=== PATIENT | female | born 1945 | race Caucasian/White ===

== ENCOUNTER 2016-06-29 17:29 | Observation (INO) | payer MEDICARE, OTHER ==
[~2016-06-29 17:29] MED LIST: ADULT ASPIRIN81 MG; ANTIVERT25 MG PO; ASPIRIN81 MG PO; ATACAND PO; ATACAND16 MG; ATACAND16 MG PO; ATACAND8 MG PO; CITRACAL + D C1 EACH PO; CITRACAL + D CA1 TAB; COREG12.5 M1 PO; COREG6.25 M1 PO; COREG6.25 MG; COREG6.25 MG PO; COUMADIN5 M1 PO; COUMADIN5 M2 PO; COUMADIN5 MG; COUMADIN7.5 M1 PO; COUMADIN7.5 MG; COUMADIN7.5 MG PO; LASIX20 M1 PO; MEGARED OMEGA-1 EAC1 PO; MULTIVITAMIN1 CAP; MULTIVITAMIN1 TAB PO; PAXIL10 MG; PAXIL10 MG PO; PREDNISONE10 M1 PO; TYLENOL PM EX-1 EACH PO; VALSARTAN40 MG PO; VIBRAMYCIN100 M1 PO; XANAX0.5 MG; XANAX0.5 MG PO; ZOFRAN4 MG PO
[2016-06-29] MEDS ORDERED: RYTHMOL SR225 M1 PO (18:35)
[2016-06-29] MEDS ORDERED: COUMADIN2.5 M1 PO (18:41)
[2016-06-29] MEDS ORDERED: PRINIVIL20 M1 PO (18:43)
[2016-06-29] MEDS ORDERED: LIPITOR40 M1 PO (18:44)
[2016-06-29] MEDS ORDERED: MELATONIN3 M4 PO (18:45)
[2016-06-29 19:08] LABS: INR 3.7 INR (0.9-1.1); PROTHROMBIN TIME 44.7 SECONDS (9.0-13.6)
[2016-06-30 05:21] LABS: INR 2.9 INR (0.9-1.1)
== END 2016-06-30 14:00 ==
LOC: CAR1 17:29
PROVIDERS: Nurse Practitioner Family; Physician Assistant; ADMIT Internal Medicine Cardiovascular Disease
DX: R07.9 Chest pain, unspecified (principal); F41.9 Anxiety disorder, unspecified; M19.90 Unspecified osteoarthritis, unspecified site; I11.0 Hypertensive heart disease with heart failure; I50.22 Chronic systolic (congestive) heart failure; K21.9 Gastro-esophageal reflux disease without esophagitis; M10.9 Gout, unspecified; F40.01 Agoraphobia with panic disorder; F17.200 Nicotine dependence, unspecified, uncomplicated; I48.91 Unspecified atrial fibrillation; I42.0 Dilated cardiomyopathy; I25.10 Atherosclerotic heart disease of native coronary artery without angina pectoris; Z79.01 Long term (current) use of anticoagulants; Z79.82 Long term (current) use of aspirin; Z79.899 Other long term (current) drug therapy; Z88.0 Allergy status to penicillin; Z88.1 Allergy status to other antibiotic agents; Z91.048 Other nonmedicinal substance allergy status; Z90.49 Acquired absence of other specified parts of digestive tract; Z90.710 Acquired absence of both cervix and uterus; Z98.890 Other specified postprocedural states; Z87.01 Personal history of pneumonia (recurrent)
CPT/HCPCS: G0378